=== PATIENT | male | born 1975 | race Two or more races ===

== ENCOUNTER 2018-10-31 01:59 | Emergency (ER) | payer SELFPAY ==
[2018-10-31 02:05] VITALS: BP 136/86; PULSE 95; RESP 18; TEMP 97.5; O2SAT 98
--- NOTE | 2018-10-31 03:32 | ED PDOC ---
HPI: Psych/Substance Abuse Time Seen by Provider: 10/31/18 02:05 Chief Complaint (Nursing): Alcohol Ingestion Chief Complaint (Provider): Alcohol Ingestion ED Caveat: Intoxicated History Per: EMS History/Exam Limitations: intoxication Onset/Duration Of Symptoms: Hrs Current Symptoms Are (Timing): Still Present Suicide/Self Injury Attempted (Context): None Modifying Factor(s): Alcohol Additional Complaint(s): 43 y/o male brought in by EMS for alcohol intoxication. Patient admits to drinking alcohol today. However, patient is unsure how much he had to drink. Otherwise, patient denies any drugs. PMD: no provider Past Medical History Reviewed: Historical Data, Nursing Documentation, Vital Signs Vital Signs: Last Vital Signs Temp 97.5 F L 10/31/18 02:02 Pulse 95 H 10/31/18 02:02 Resp 18 10/31/18 02:02 BP 136/86 10/31/18 02:02 Pulse Ox 98 10/31/18 02:02 - Medical History PMH: No Chronic Diseases - Surgical History Surgical History: No Surg Hx - Family History Family History: States: Unknown Family Hx - Allergies Allergies/Adverse Reactions: Allergies Allergy/AdvReac Type Severity Reaction Status Date / Time No Known Allergies Allergy Verified 10/31/18 02:02 Review of Systems ROS Statement: Except As Marked, All Systems Reviewed And Found Negative Psych: Positive for: Other (alcohol intoxication) Physical Exam - Reviewed Nursing Documentation Reviewed: Yes Vital Signs Reviewed: Yes - Physical Exam Appears: Positive for: No Acute Distress Head Exam: Positive for: ATRAUMATIC, NORMOCEPHALIC Skin: Positive for: Normal Color, Warm, Dry Eye Exam: Positive for: Normal appearance, EOMI, PERRL Neck: Positive for: Normal, Painless ROM Cardiovascular/Chest: Positive for: Regular Rate, Rhythm. Negative for: Murmur Respiratory: Positive for: Normal Breath Sounds. Negative for: Respiratory Distress Gastrointestinal/Abdominal: Positive for: Normal Exam, Soft. Negative for: Tenderness Back: Positive for: Normal Inspection. Negative for: L CVA Tenderness, R CVA Tenderness, Vertebral Tenderness Extremity: Positive for: Normal ROM. Negative for: Deformity Neurologic/Psych: Positive for: Alert, Oriented. Negative for: Motor/Sensory Deficits - ECG O2 Sat by Pulse Oximetry: 98 (RA) Pulse Ox Interpretation: Normal Medical Decision Making Medical Decision Making: Time: 333 Plan: -- pending sobriety. 530 --Patient is awake, alert, clinically sober, stable vitals. Scribe Attestation: Documented by Alfonso Grace, acting as a scribe for Germán Santiago MD. Provider Scribe Attestation: All medical record entries made by the Scribe were at my direction and personally dictated by me. I have reviewed the chart and agree that the record accurately reflects my personal performance of the history, physical exam, medical decision making, and the department course for this patient. I have also personally directed, reviewed, and agree with the discharge instructions and disposition. Disposition - Clinical Impression Clinical Impression: Alcohol abuse - Patient ED Disposition Is Patient to be Admitted: No Counseled Patient/Family Regarding: Studies Performed, Need For Followup - Disposition Disposition: Routine/Home Disposition Time: 05:36 Condition: IMPROVED Forms: [facility] ([place])
== END 2018-10-31 06:24 | disposition home or self-care (01) ==
LOC: H.ER 01:59
DX: F10.129 Alcohol abuse with intoxication, unspecified (principal)